=== PATIENT | female | born 1965 | race Caucasian/White ===

== ENCOUNTER 2020-04-29 17:29 | Emergency (ER) | payer OTHER ==
[~2020-04-29] VITALS: Ht 149.9 cm; Wt 88.5 kg
[~2020-04-29 17:29] MED LIST: AUGMENTIN 875-1 EACH PO; VANCOMYCIN HCL125 MG PO
[2020-04-29 21:00] LABS: HEMOGLOBIN 17.2 gm/dl (12.3-15.3); RED BLOOD COUNT 5.88 M/UL (4.00-5.10); WHITE BLOOD COUNT 15.3 K/UL (4.5-11.0)
[2020-04-29 21:14] LABS: BUN/CREATININE RATIO 8 (0-10)
[2020-04-30 04:48] LABS: ADENOVIRUS F 40/41 Not Detected (Negative); ASTROVIRUS Not Detected (Negative); CAMPYLOBACTER Not Detected (Negative); CLOSTRIDIUM DIFFICILE TOX A/B Not Detected (Negative); CRYPTOSPORIDIUM Not Detected (Negative); E.COLI 0157 Not Detected (Negative); ENTAMOEBA HISTOLYTICA Not Detected (Negative); ENTEROAGGREGATIVE E.COLI (EAEC Not Detected (Negative); ENTEROPATHOGENIC E.COLI (EPEC) Not Detected (Negative); GIARDIA LAMBLIA Not Detected (Negative); NOROVIRUS GI/GII Not Detected (Negative); PLESIOMONAS SHIGELLOIDES Not Detected (Negative); ROTOVIRUS A Not Detected (Negative); SALMONELLA Not Detected (Negative); SAPOVIRUS Not Detected (Negative); SHIG/ENTEROINVAS.ECOLI (EIEC) Not Detected (Negative); SHIGA-LIK TOX.PRO.E.COLI (STEC Not Detected (Negative); VIBRIO Not Detected (Negative); VIBRIO CHOLERAE Not Detected (Negative); YERSINIA ENTEROCOLITICA Not Detected (Negative)
[2020-04-30 10:21] LABS: ENTEROTOXIGENIC E.COLI (ETEC) DETECTED (Negative)
[2020-04-30] MEDS ORDERED: COZAAR 25MG TAB25 MG PO (10:33)
[2020-04-30] MEDS ORDERED: ESCITALOPRAM OX10 MG PO (10:34)
[2020-04-30] MEDS ORDERED: AUGMENTIN 500-500 MG PO (10:34)
[2020-04-30] MEDS ORDERED: AMARYL 2MG TABLE2 MG PO (10:35)
[2020-04-30] MEDS ORDERED: HYDROXYZINE PAM25 MG PO (10:36)
[2020-04-30] MEDS ORDERED: ASPIRIN325 MG PO (10:36)
[2020-04-30] MEDS ORDERED: VENTOLIN HFA 66.7 GM INH (10:37)
[2020-04-30] MEDS ORDERED: IPRAT-ALBUT 0.5-3 ML INH (10:37)
[2020-04-30] MEDS ORDERED: FIBER GUMMIES-1 EACH PO (10:39)
== END 2020-04-30 16:31 | disposition short-term general hospital (02) ==
LOC: ER1 17:29 → CDU 04-30 00:04
PROVIDERS: Emergency Medicine; Internal Medicine
DX: K57.32 Diverticulitis of large intestine without perforation or abscess without bleeding (principal); E11.9 Type 2 diabetes mellitus without complications; I10 Essential (primary) hypertension; J44.9 Chronic obstructive pulmonary disease, unspecified; G40.909 Epilepsy, unspecified, not intractable, without status epilepticus; F17.210 Nicotine dependence, cigarettes, uncomplicated; Z88.5 Allergy status to narcotic agent; Z88.1 Allergy status to other antibiotic agents; Z87.19 Personal history of other diseases of the digestive system; Z90.49 Acquired absence of other specified parts of digestive tract; Z98.890 Other specified postprocedural states; Z85.3 Personal history of malignant neoplasm of breast; Z90.10 Acquired absence of unspecified breast and nipple; Z79.899 Other long term (current) drug therapy; Z20.822 Contact with and (suspected) exposure to COVID-19
CPT/HCPCS: 80053; 81001; 82962; 83690; 85025; 87507; 96372; 96374; 96375; 99284; G0378; J1335; J1885; J2270; J7030; Q9967; U0002

== ENCOUNTER 2020-05-07 18:04 | Emergency (ER) | payer OTHER ==
[~2020-05-07 18:04] MED LIST changes: +AMARYL 2MG TABLE2 MG PO; +ASPIRIN325 MG PO; +AUGMENTIN 500-500 MG PO; +COZAAR 25MG TAB25 MG PO; +ESCITALOPRAM OX10 MG PO; +FIBER GUMMIES-1 EACH PO; +HYDROXYZINE PAM25 MG PO; +IPRAT-ALBUT 0.5-3 ML INH; +VENTOLIN HFA 66.7 GM INH
[2020-05-07 18:44] LABS: HEMOGLOBIN 15.7 gm/dl (12.3-15.3); RED BLOOD COUNT 5.51 M/UL (4.00-5.10); WHITE BLOOD COUNT 10.7 K/UL (4.5-11.0)
[2020-05-07 19:04] LABS: BUN/CREATININE RATIO 7 (0-10)
[2020-05-07] MEDS ORDERED: PERCOCET 5/325 T1 EA PO (22:53)
[2020-05-07] MEDS ORDERED: CIPRO500 MG PO (22:53)
== END 2020-05-07 23:13 | disposition home or self-care (01) ==
LOC: ER1 18:04
PROVIDERS: Emergency Medicine
DX: K57.32 Diverticulitis of large intestine without perforation or abscess without bleeding (principal); I10 Essential (primary) hypertension; E11.9 Type 2 diabetes mellitus without complications; J44.9 Chronic obstructive pulmonary disease, unspecified; Z88.5 Allergy status to narcotic agent; Z88.1 Allergy status to other antibiotic agents
CPT/HCPCS: 36415; 80053; 81001; 82150; 83690; 85025; 96374; 96375; 99284; J2270; J2405; Q9967

== ENCOUNTER → 2021-08-23 | Outpatient (CLI) | payer OTHER ==
[~2021-08-23] MED LIST changes: +CIPRO500 MG PO; +PERCOCET 5/325 T1 EA PO
== END ==
LOC: HEART 5 10:48
DX: J44.9 Chronic obstructive pulmonary disease, unspecified (principal)
CPT/HCPCS: 71046; 94010

== ENCOUNTER → 2021-09-16 | Outpatient (CLI) | payer OTHER | LOC: KOH-I 11:00 | DX: F17.210 Nicotine dependence, cigarettes, uncomplicated (principal) | CPT/HCPCS: 71271 ==

== ENCOUNTER → 2021-10-20 | Outpatient (CLI) | payer OTHER | LOC: SLEEP 09:41 | DX: G47.33 Obstructive sleep apnea (adult) (pediatric) (principal); R06.83 Snoring | CPT/HCPCS: 95810 ==

== ENCOUNTER → 2021-12-03 | Outpatient (CLI) | payer OTHER | LOC: HEART 5 08:00 | DX: I20.8 Other forms of angina pectoris (principal); R06.02 Shortness of breath; R94.39 Abnormal result of other cardiovascular function study | CPT/HCPCS: 78452; A9502; J2785 ==